=== PATIENT | female | born 1990 | race Caucasian/White ===

== ENCOUNTER 2021-08-19 20:23 | Emergency (ER) | payer OTHER ==
[~2021-08-19] VITALS: Ht 266.7 cm; Wt 78.9 kg
--- NOTE | ~2021-08-19 | EMS ---
[place] [id number] [facility] Patient Care Report Name: HARISH DELAROSA Room #: DEP ASHLY Bennett#: [id number] Admission: 08/19/21 Attend Phys: Discharge: 08/20/21 Date of : [birth year] Report #: [id number] THIS REPORT FOR: //name// Report Transmitted: 08/20/2021 11:10 EMS Care Summary [place], [place]/[facility] Incident [phone] @ 08/19/2021 19:47 [address] [place] [address] Patient HARISH DELAROSA Female, 31 Years 1990 Patient Address [address] [place] [address] Patient History None Reported, Patient Allergies No known allergies, Patient Medications Oxycodone, Chief Complaint OVERDOSE OXYCODONE Disposition Transported No Lights/[place] Reason Psychiatric Problem/Abnormal Behavior/Suicide Attempt Transported To [facility] Narrative ARRIVED TO FIND PT WALKING TO AMBULANCE. PT REPORTS FEELING VERY STRESSED AND UNABLE TO SLEEP FOR A FEW DAYS, SO SHE TOOK 5 10MG OXYCODONE, AND IS NOW FEELING "OFF." DENIES SI/HI. PT STEPS INSIDE AMBO, SITS ON COT, SECURED WITH STRAPS X2. ALS ASSESSMENT VITALS OB[place] [address] EMS Patient Care Report Name: HARISH DELAROSA Room #: DEP [facility]#: [id number] Admission: 08/19/21 Attend Phys: Discharge: 08/20/21 Date of : [birth year] Report #: [id number] ENROUTE, PT CONDITION UNCHANGED. ARRIVED. PT TAKEN INSIDE ON COT TO ER 5. PT MOVES SELF TO BED RAILS RAISED X2. REPORT GIVEN TO NURSE, PT CARE TRANSFERRED. Initial Vitals @20:09P: 87,R: 14,BP: 172/110,Pain: 0/10,GCS: 15,CO: 6,SpO2: 98,Revised Trauma: 12, @20:00P: 88,R: 14,BP: 185/115,Pain: 0/10,GCS: 15,Glucose: 141,SpO2: 95,Revised Trauma: 12, Assessments @19:57MENTAL:Person Oriented,Place Oriented,Time Oriented,Event Oriented,SKIN:HEENT:Head/Face: No Abnormalities,Eyes: No Abnormalities,LUNG SOUNDS:ABDOMEN:PELVIS//GI:EXTREMITIES:PULSE:NEURO: Impression Overdose - Other opioids Procedures @19:57 ALS Assessment Response: UnchangedSucceeded @20:04 IV Therapy - Saline Lock 10cc (20 ga) Site: Antecubital-Left Response: UnchangedSucceeded @20:17 Zofran - 4 Milligrams (mg) - Intravenous (IV) Response: Improved Timeline 19:47,Call Received 19:47,Dispatch Notified 19:47,Dispatched 19:48,En Route 19:56,On Scene 19:57,At Patient 19:57,ALS Assessment,Response: UnchangedSucceeded, 20:00,BP: 185/115 M,PULSE: 88,RR: 14 R,SPO2: 95 Ox,ETCO2: ,B,PAIN: 0,GCS: 15, 20:03,Depart Scene 20:04,IV Therapy - Saline Lock 10cc 20 ga Site: Antecubital-Left,Response: UnchangedSucceeded, 20:09,BP: 172/110 M,PULSE: 87,RR: 14 R,SPO2: 98 Ox,ETCO2: ,BG: ,PAIN: 0,GCS: 15, 20:17,Zofran - 4 Milligrams (mg) - Intravenous (IV),Response: Improved 20:17,At Destination 20:35,Call Closed [facility] [address] [place] [address] EMS Patient Care Report Name: HARISH DELAROSA Room #: DEP Sabrina#: [id number] Admission: 08/19/21 Attend Phys: Discharge: 08/20/21 Date of : [birth year] Report #: [id number] Disclaimer v1.1 Copyright 2021 [employer] This EMS Care Summary contains data elements from the applicable legal record (which may be displayed differently). It is designed to provide pertinent information for the following purposes: continuity of care, clinical quality, and state data reporting. The complete legal record is available to ED staff and administrators of the receiving hospital in [employer]'s Patient Tracker. All data is provided "as is."
[2021-08-19 21:28] LABS: HEMATOCRIT 35.8 % (37.0-47.0); HEMOGLOBIN 11.9 gm/dL (12.0-15.0); MCH 29.2 pg (26.0-34.0); MCHC 33.3 g/dL (28.0-37.0); MCV 87.7 fL (80.0-100.0); RBC 4.09 mil/uL (4.20-5.00); RDW 13.7 % (10.5-14.5); WBC 11.5 thou/uL (4.0-11.0)
[2021-08-19 21:39] LABS: ANION GAP 10 mmol/L (7-16); BUN 9 mg/dL (7-18); CALCIUM 8.7 mg/dL (8.5-10.1); CHLORIDE 101 mmol/L (98-107); CO2 24 mmol/L (21-32); CREATININE 0.6 mg/dL (0.6-1.0); GLUCOSE 133 mg/dL (74-106); POTASSIUM 3.1 mmol/L (3.5-5.1); SODIUM 135 mmol/L (136-145)
[2021-08-19 21:48] LABS: ALBUMIN 3.9 g/dL (3.4-5.0); MAGNESIUM 1.9 mg/dL (1.8-2.4); PHOSPHORUS 4.3 mg/dL (2.6-4.7); SALICYLATE < 2.8 mg/dL (2.8-20.0); SGOT 11 U/L (15-37); SGPT 36 U/L (14-59); TOTAL BILIRUBIN 0.5 mg/dL (0.2-1.0); TOTAL PROTEIN 7.2 g/dL (6.4-8.2)
[2021-08-19 22:10] LABS: URINE BILIRUBIN NEGATIVE (Negative); URINE BLOOD NEGATIVE (Negative); URINE CLARITY CLEAR; URINE COLOR YELLOW; URINE GLUCOSE-RANDOM* NEGATIVE (Negative); URINE KETONES NEGATIVE (Negative); URINE LEUKOCYTES-REFLEX TRACE (Negative); URINE NITRITE-REFLEX NEGATIVE (Negative); URINE PROTEIN (DIPSTICK) NEGATIVE (Negative); URINE SPECIFIC GRAVITY >= 1.030 (1.005-1.035); URINE UROBILINOGEN 0.2 E.U./dl (0.2-1.0)
[2021-08-19 22:19] LABS: AMP/METHAMP Negative (Negative); BARBITURATES Negative (Negative); BENZODIAZEPINES Negative (Negative); COCAINE Negative (Negative); METHADONE Negative (Negative); OPIATES POSITIVE (Negative); PCP Negative (Negative)
[2021-08-20 04:54] VITALS: BP 134/64
--- NOTE | 2021-08-20 07:39 | EKG ---
[place] [address] [facility] [place] [address] ELECTROCARDIOGRAM REPORT Name: HARISH DELAROSA Room #: [facility] Sabrina#: [id number] Admission: 08/19/21 Attend Phys: Discharge: 08/20/21 Date of : [birth year] Report #: [id number] [facility] ED Test Date: 2021-08-19 Test Time: 21:25:10 Pat Name: HARISH DELAROSA Department: Room: Gender: F [employer]: [facility] : 1990 Requested By: Adarsh Oconnell Order Number: [id number] MD: Marco De La O Measurements Intervals [place] Rate: 77 P: 5 OR: 195 QRS: -30 QRSD: 104 T: -19 QT: 404 QTc: 458 Interpretive Statements Sinus rhythm Left axis deviation Nonspecific T abnormalities, anterior leads No previous ECG available for comparison Electronically Signed On 08-20-2021 7:39:19 RNFA by Marco De La O [email or web address] <ELECTRONICALLY SIGNED> By: Marco De La O MD, [facility] 08/20/21 0739 [id number] 24 Marco De La O MD, FACC /EPI
== END 2021-08-20 04:56 | disposition home or self-care (01) ==
LOC: ER 20:23
PROVIDERS: Emergency Medicine
DX: T65.91XA Toxic effect of unspecified substance, accidental (unintentional), initial encounter (principal); Y92.89 Other specified places as the place of occurrence of the external cause